=== PATIENT | female | born 1945 | race Hispanic/Latino ===

== ENCOUNTER → 2019-12-05 | Outpatient (CLI) | payer OTHER, MEDICARE ==
[~2019-12-05] MED LIST: AMOX875T2 PO; ASPI-1197 PO; GLIP-196 PO; LOSA50TA64 PO; METF-444 PO; METF-446 PO; METO-409 PO; NAPR375T6 PO; REGADENOSON 0.4 MG/5 ML PF SYG IVP SCH; SITA100T12 PO; [UNRECOGNIZED DRUG - OTHER] PO; [UNRECOGNIZED DRUG - OTHER] PO
== END | disposition home or self-care (01) ==
LOC: SHCH 08:30
PROVIDERS: ATTEND Internal Medicine Cardiovascular Disease
DX: I25.10 Atherosclerotic heart disease of native coronary artery without angina pectoris (principal)
CPT/HCPCS: 78452; 93017; 96374; A9500 ×2; J2785

== ENCOUNTER → 2023-04-25 | Outpatient (CLI) | payer OTHER, MEDICARE ==
[~2023-04-25] MED LIST changes: -REGADENOSON 0.4 MG/5 ML PF SYG IVP SCH
[2023-04-25 16:42] LABS: POTASSIUM 4.3 mmol/L (3.5-5.1)
== END | disposition home or self-care (01) ==
LOC: LAB 14:19
PROVIDERS: ATTEND Internal Medicine Cardiovascular Disease
DX: I25.10 Atherosclerotic heart disease of native coronary artery without angina pectoris (principal)
CPT/HCPCS: 36415; 80051

== ENCOUNTER 2024-06-26 18:32 | Emergency (ER) | payer OTHER, MEDICARE ==
[~2024-06-26] VITALS: Ht 154.9 cm; Wt 59.0 kg
[~2024-06-26 18:32] MED LIST changes: -TRAM50TA4 PO
[2024-06-26] MEDS: acetaMINOPHEN 500 MG TABLET PO ONE (19:22)
[2024-06-26] MEDS ORDERED: TRAM50TA4 PO (20:18)
[2024-06-26 20:35] VITALS: BP 138/52; PULSE 62; RESP 20; TEMP 98.8; O2SAT 98
== END 2024-06-26 20:47 | disposition home or self-care (01) ==
LOC: EDH 18:32
DX: S86.912A Strain of unspecified muscle(s) and tendon(s) at lower leg level, left leg, initial encounter (principal); M17.12 Unilateral primary osteoarthritis, left knee; I11.0 Hypertensive heart disease with heart failure; I50.9 Heart failure, unspecified; I25.2 Old myocardial infarction; Z90.710 Acquired absence of both cervix and uterus; Z79.899 Other long term (current) drug therapy; Z88.5 Allergy status to narcotic agent; Z79.2 Long term (current) use of antibiotics; Z79.82 Long term (current) use of aspirin; Z79.84 Long term (current) use of oral hypoglycemic drugs; X50.1XXA Overexertion from prolonged static or awkward postures, initial encounter; Y93.89 Activity, other specified; Y92.810 Car as the place of occurrence of the external cause; Y99.8 Other external cause status
CPT/HCPCS: 73562

== ENCOUNTER → 2024-06-26 | Outpatient (CLI) | payer OTHER, MEDICARE ==
[~2024-06-26] MED LIST changes: +TRAM50TA4 PO
[2024-06-26 13:04] LABS: INR 2.25 (0.85-1.15); PROTHROMBIN TIME 22.9 SEC (9.6-11.6)
== END | disposition home or self-care (01) ==
LOC: LAB 10:03
PROVIDERS: ATTEND Internal Medicine Cardiovascular Disease
DX: I48.91 Unspecified atrial fibrillation (principal)
CPT/HCPCS: 36415; 85610